=== PATIENT | male | born 1930 | race Caucasian/White ===

== ENCOUNTER 2016-06-10 15:00 | Emergency (ER) | payer MEDICARE, OTHER ==
[~2016-06-10] VITALS: Ht 165.1 cm; Wt 75.0 kg
[~2016-06-10 15:00] MED LIST: ALEN70TA30 PO; ASCO125T PO; BICALUTAMIDE; CALC600T PO; CITROMA PO; DIGO0.12 PO; DOCU-144 PO; LAS20I IM; MULT-761 PO; POTA8TAB35 PO; SENN8.6C3 PO; SENN8.8S5 PO; ULT50 PO; [UNRECOGNIZED DRUG - CODE]
[2016-06-10 15:08] VITALS: Ht 165.1 cm; Wt 75.0 kg
[2016-06-10] MEDS ORDERED: DOCU-144 PO (16:03)
[2016-06-10] MEDS ORDERED: POLY17PO6 PO (16:03)
--- NOTE | 2016-06-10 16:05 | ERD ---
ER Documentation Chief Complaint Date/Time DATE: 06/10/16 TIME: 16:04 Chief Complaint CONSTIPATION HPI 86-year-old man with a history of constipation presents with constipation 1 week. He states he normally has 2 bowel movements per day although for the last week he has had one every other day. Patient denies blood or mucus in his stools, no melena, no vomiting, no chest pain or shortness of breath. Patient denies recent new medications or antibiotic use. ROS All systems reviewed and are negative except as per history of present illness. Medications Home Meds Active Scripts Docusate Sodium* (Colace*) 100 Mg Capsule, 100 MG PO BID for CONSTIPATION, #30 CAP Prov:HODAN CASTILLO MD 06/10/16 Polyethylene Glycol* (Miralax*) 17 Gm Powd.pack, 2 TSP PO DAILY, #1 BOTTLE Prov:HODAN CASTILLO MD 06/10/16 Docusate Sodium* (Colace*) 100 Mg Capsule, 100 MG PO TID Y for CONSTIPATION, # 30 CAP Prov:EV ESPARZA MD 05/16/16 Magnesium Citrate* (Citroma*) 300 Ml Soln, 300 ML PO DAILY Y for CONSTIPATION, # 3 BOTTLE Prov:EV ESPARZA MD 05/16/16 Tramadol HCl (Tramadol HCl) 50 Mg Tab, 50 MG PO Q6 Y for PAIN, #12 TAB Prov:GEORGES MORGAN MD 02/07/15 Reported Medications Alendronate Sodium* (Fosamax*) 70 Mg Tablet, 70 MG PO HS 09/10/13 Potassium Chloride* (Klor-Con*) 8 Meq Tablet.sa, 8 MEQ PO DAILY 09/10/13 Calcium Carbonate* (Caltrate-600*) 600 Mg Tablet, 600 MG PO DAILY 09/10/13 Ascorbic Acid* (Vitamin C* Chew) 125 Mg Tab.chew, 125 MG PO DAILY, TAB.CHEW 09/10/13 Sennosides* (Senna* Liq) 8.8 Mg/5 Ml Syrup, 8.8 MG PO Y for CONSTIPATION 09/10/13 Sennosides* (Senna*) 8.6 Mg Capsule, 8.6 MG PO 09/10/13 Multivitamin (MULTI VITAMIN DAILY) 1 Each Tablet, 1 EACH PO DAILY 4/12/14 Furosemide* (Lasix*) 10 Mg/Ml Soln, 20 MG IM DAILY 09/10/13 Digoxin* (Lanoxin*) 0.125 Mg/2.5 Ml Solution, 0.125 MG PO DAILY 09/10/13 [bilalutamide] No Conflict Check 09/10/13 [hydrocodone5/325] No Conflict Check 09/10/13 Allergies Allergies: Coded Allergies: No Known Allergy (Unverified , 09/09/13) PMhx/Soc Hypertension, chronic constipation, osteoporosis, mild dementia History of Surgery: Yes (L SARAH) Anesthesia Reaction: No Hx Neurological Disorder: No Hx Respiratory Disorders: No Hx Cardiac Disorders: No Hx Psychiatric Problems: Yes Hx Miscellaneous Medical Probl: Yes (A-FIB, HTN, OA, DJD) Hx Alcohol Use: No Hx Substance Use: No Hx Tobacco Use: No FmHx Family History: No diabetes Physical Exam Vitals Vital Signs Date Time Temp Pulse Resp B/P Pulse Ox O2 Delivery O2 Flow Rate FiO2 06/10/16 15:08 97.8 77 18 101/57 97 Physical Exam GENERAL: Well-developed, well-nourished, well-hydrated, in no apparent distress , looks nontoxic in appearance HEENT: Moist mucous membranes, pink conjunctiva, no cervical spine tenderness or step-off deformities, no goiter, no jaundice or icterus, extraocular movements intact without pain. No submandibular induration, and no pharyngeal erythema NEURO: Alert and oriented 3, cranial nerves II through XII intact bilaterally, pupils equal round reactive to light, no focal deficits or facial asymmetry, sensation intact distally Strength 5/5 in upper and lower extremities bilaterally CARDIAC: Regular rate and rhythm, no murmurs rubs or gallops LUNGS: Clear bilaterally no wheezing crackles or stridor ABDOMEN: Soft nontender, no guarding, no rigidity, no rebound, no psoas sign no obturator sign. Normoactive bowel sounds SKIN: Warm and dry to touch, no abrasions, contusions, or hematomas, no lacerations, no ecchymosis, no target lesions, and without ulcers EXTREMITIES: No clubbing cyanosis or edema, calves are bilaterally symmetrical, no Homans sign, no popliteal cord sign. Distal pulses equal and bilateral PSYCH: Normal affect without agitation or irritability Results 24 hrs Current Medications Medications (Trade) Dose Ordered Sig/Maykel Route PRN Reason Start Time Stop Time Status Last Admin Dose Admin Magnesium Citrate (Citroma) 300 ml ONCE ONCE PO 06/10/16 16:30 06/10/16 16:31 DC 06/10/16 16:32 Procedures/MDM I reviewed his past medical history and previous workup. I administered magnesium citrate 300 cc p.o. which she tolerated. Differential diagnoses considered, included but not limited to acute coronary syndrome, pulmonary embolism, aortic dissection, abdominal aortic aneurysm, sepsis, stroke, meningitis, encephalitis, pneumonia, appendicitis, cholecystitis , bowel obstruction, pyelonephritis, nephrolithiasis, cystitis, as well as metabolic, hematologic, and electrolyte abnormalities. As well as abscess, cellulitis, fractures, and dislocations. Patient feels much better at this time, and vital signs are normal, symptoms have improved. I did give strict instructions to return to the ED if symptoms continue or worsen, patient will otherwise follow-up with primary care physician. Patient understood instructions and agreed to plan. Departure Diagnosis: Primary Impression: Constipation Constipation type: slow transit constipation Qualified Code: K59.01 - Slow transit constipation Condition: Good Patient Instructions: Constipation (Adult) HODAN CASTILLO MD Jun 10, 2016 16:04
[2016-06-10] MEDS ORDERED: MAGNESIUM CITRATE 300 ML BTL PO ONE (16:30)
== END 2016-06-10 16:37 | disposition home or self-care (01) ==
LOC: FTE 15:00
DX: K59.01 Slow transit constipation (principal); I10 Essential (primary) hypertension
CPT/HCPCS: 99283

== ENCOUNTER 2016-11-11 15:21 | Emergency (ER) | payer MEDICARE, OTHER ==
[~2016-11-11] VITALS: Ht 188 cm; Wt 77.3 kg
[~2016-11-11 15:21] MED LIST changes: +POLY17PO6 PO; +POTA8TAB2 PO; -POTA8TAB35 PO; +TRAM50TA2 PO; -ULT50 PO
[2016-11-11 15:35] VITALS: Ht 188 cm; Wt 77.3 kg
[2016-11-11] MEDS ORDERED: NA PHOSPHATE/BIPHOS 133 ML ENEMA PR ONE (16:00)
[2016-11-11] MEDS ORDERED: POLY17PO6 PO (17:36)
[2016-11-11] MEDS ORDERED: BISA10SU55 RC (17:36)
--- NOTE | 2016-11-11 18:04 | ERD ---
ER Documentation Chief Complaint Date/Time DATE: 11/11/16 TIME: 18:02 Chief Complaint CONSTIPATION HPI 86-year-old male with multiple medical problems presenting with complaints of constipation. He states that he usually goes twice a day and this morning he was unable to have a bowel movement. As this is not normal for him, he is coming in requesting an enema. He denies any abdominal pain, nausea, vomiting, history of melena or hematochezia. His last bowel movement last night after dinner was normal. ROS All systems reviewed and are negative except as per history of present illness. Medications Home Meds Active Scripts Bisacodyl (Dulcolax) 10 Mg Supp.rect, 10 MG RC QHS Y for CONSTIPATION, #10 SUPP.RECT Prov:TAYA GOMES MD 11/11/16 Polyethylene Glycol* (Miralax*) 17 Gm Powd.pack, 17 GM PO DAILY, #7 Prov:TAYA GOMES MD 11/11/16 Discontinued Reported Medications Alendronate Sodium* (Fosamax*) 70 Mg Tablet, 70 MG PO HS 09/10/13 Potassium Chloride* (Klor-Con*) 8 Meq Tablet.sa, 8 MEQ PO DAILY 09/10/13 Calcium Carbonate* (Caltrate-600*) 600 Mg Tablet, 600 MG PO DAILY 09/10/13 Ascorbic Acid* (Vitamin C* Chew) 125 Mg Tab.chew, 125 MG PO DAILY, TAB.CHEW 09/10/13 Sennosides* (Senna* Liq) 8.8 Mg/5 Ml Syrup, 8.8 MG PO Y for CONSTIPATION 09/10/13 Sennosides* (Senna*) 8.6 Mg Capsule, 8.6 MG PO 09/10/13 Multivitamin (MULTI VITAMIN DAILY) 1 Each Tablet, 1 EACH PO DAILY 09/10/13 Furosemide* (Lasix*) 10 Mg/Ml Soln, 20 MG IM DAILY 09/10/13 Digoxin* (Lanoxin*) 0.125 Mg/2.5 Ml Solution, 0.125 MG PO DAILY 09/10/13 [bilalutamide] No Conflict Check 09/10/13 [hydrocodone5/325] No Conflict Check 09/10/13 Discontinued Scripts Docusate Sodium* (Colace*) 100 Mg Capsule, 100 MG PO BID for CONSTIPATION, #30 CAP Prov:HODAN CASTILLO MD 06/10/16 Polyethylene Glycol* (Miralax*) 17 Gm Powd.pack, 2 TSP PO DAILY, #1 BOTTLE Prov:HODAN CASTILLO MD 06/10/16 Docusate Sodium* (Colace*) 100 Mg Capsule, 100 MG PO TID Y for CONSTIPATION, # 30 CAP Prov:EV ESPARZA MD 05/16/16 Magnesium Citrate* (Citroma*) 300 Ml Soln, 300 ML PO DAILY Y for CONSTIPATION, # 3 BOTTLE Prov:EV ESPARZA MD 05/16/16 Tramadol HCl (Tramadol HCl) 50 Mg Tab, 50 MG PO Q6 Y for PAIN, #12 TAB Prov:GEORGES MORGAN MD 02/07/15 Allergies Allergies: Coded Allergies: No Known Allergy (Unverified , 11/11/16) PMhx/Soc History of Surgery: Yes (L SARAH) Anesthesia Reaction: No Hx Neurological Disorder: No Hx Respiratory Disorders: No Hx Cardiac Disorders: No Hx Psychiatric Problems: Yes Hx Miscellaneous Medical Probl: Yes (A-FIB, HTN, OA, DJD) Hx Alcohol Use: No Hx Substance Use: No Hx Tobacco Use: No Smoking Status: Former smoker FmHx Family History: No diabetes Physical Exam Vitals Vital Signs Date Time Temp Pulse Resp B/P Pulse Ox O2 Delivery O2 Flow Rate FiO2 11/11/16 15:35 97.9 101 18 128/70 98 Physical Exam Const: Well-appearing, appears stated age, no apparent distress, nontoxic Head: Atraumatic Eyes: Normal Conjunctiva ENT: Normal External Ears, Nose and Mouth. Neck: Full range of motion..~ No meningismus. Resp: Clear to auscultation bilaterally Cardio: Regular rate and rhythm, no murmurs Abd: Soft, non tender, non distended. No rebound or guarding. Normal bowel sounds Skin: No petechiae or rashes Back: No midline or flank tenderness Ext: No cyanosis, or edema Neur: Awake and alert Psych: Normal Mood and Affect Results 24 hrs Current Medications Medications (Trade) Dose Ordered Sig/Maykel Route PRN Reason Start Time Stop Time Status Last Admin Dose Admin Sodium Biphosphate/ Sodium Phosphate (Fleet Enema) 133 ml ONCE ONCE MA 11/11/16 16:00 11/11/16 16:01 DC 11/11/16 16:11 Procedures/MDM Patient is presenting with complaints of constipation. His vitals are stable. Exam is not concerning for bowel obstruction or any other signs of an acute surgical abdomen. Enema was given with a subsequent bowel movement. Patient states he feels better and would like to eat dinner. He will be transferred back to his facility. A prescription for MiraLAX and Dulcolax suppository were given.return precautions discussed. Departure Diagnosis: Primary Impression: Constipation Constipation type: unspecified constipation type Qualified Code: K59.00 - Constipation, unspecified constipation type Condition: Stable Patient Instructions: Constipation (Adult) Referrals: DOCTOR,NOT ON STAFF (PCP) Additional Instructions: Return for any worsening symptoms. TAYA GOMES MD Nov 11, 2016 18:04
[2016-11-11 18:57] VITALS: BP 118/83; PULSE 75; RESP 18; TEMP 97.5
== END 2016-11-11 18:55 | disposition home or self-care (01) ==
LOC: E/R 15:21
DX: K59.00 Constipation, unspecified (principal); I10 Essential (primary) hypertension; Z87.891 Personal history of nicotine dependence
CPT/HCPCS: 99283

== ENCOUNTER 2018-02-02 19:51 | Inpatient (IN) | END 2018-02-23 17:19 | disposition hospice, home (50) | DRG 870 ==